=== PATIENT | female | born 1960 | race Caucasian/White ===

== ENCOUNTER → 2016-07-18 | Outpatient (CLI) | payer OTHER ==
--- NOTE | 2016-07-21 07:08 | MM ---
Reason for exam: screening (asymptomatic). Last mammogram was performed 1 year and 1 month ago. History: Patient is postmenopausal, has history of colon cancer at age 49, and history of other cancer. Took estrogen for 16 years beginning at age 32. Physical Findings: A clinical breast exam by your physician is recommended on an annual basis and results should be correlated with mammographic findings. MG Screening Mammo w CAD Bilateral CC and MLO view(s) were taken. Prior study comparison: June 26, 2015, bilateral MG screening mammo w CAD. May 31, 2014, bilateral MG screening mammo w CAD. There are scattered fibroglandular densities. There is no discrete abnormality. No significant changes when compared with prior studies. ASSESSMENT: Negative, BI-RAD 1 RECOMMENDATION: Routine screening mammogram of both breasts in 1 year.
== END | disposition home or self-care (01) ==
LOC: RADMAMWWP 09:45
PROVIDERS: ATTEND Family Medicine
DX: Z12.31 Encounter for screening mammogram for malignant neoplasm of breast (principal)

== ENCOUNTER → 2016-08-07 | Outpatient (CLI) | payer OTHER ==
--- NOTE | 2016-08-08 08:46 | XR ---
EXAMINATION TYPE: XR cervical spine comp DATE OF EXAM: 08/07/2016 2:36 PM COMPARISON: NONE HISTORY: Bilateral carpal pain, cervical pain TECHNIQUE: 5 view cervical spine FINDINGS: There is left foraminal stenosis C3-4. Foraminal stenosis is also present on left at C6-7. Some foraminal stenosis present on the right at C6-7. Prevertebral space is normal. There is disc space narrowing throughout the cervical spine greatest at C6-7. Anterior vertebral body spurring is present. Facet degenerative changes are present. Odontoid is limited due to overlying occiput. Transthoracic swimmer's view supplemental CT exam. IMPRESSION: 1. Foraminal stenosis discussed above. 2. Degenerative disc changes.
== END | disposition home or self-care (01) ==
LOC: RADXRYALE 14:11
PROVIDERS: ATTEND Physician Assistant Medical
DX: M48.02 Spinal stenosis, cervical region (principal); M50.323 Other cervical disc degeneration at C6-C7 level
CPT/HCPCS: 72050

== ENCOUNTER → 2017-02-26 | Outpatient (CLI) | payer OTHER ==
--- NOTE | 2017-02-27 10:58 | XR ---
EXAMINATION TYPE: XR lumbosacral spine min 4V DATE OF EXAM: 02/26/2017 COMPARISON: NONE HISTORY: Degenerative disc change, chronic TECHNIQUE: Lumbar spine is examined in 5 views. FINDINGS: There 5 lumbar-type vertebral bodies. The pedicles are intact. Facet degenerative changes a re present L5-S1. Milder facet degenerative changes are within the remaining lumbar spine Disc height s appear preserved. Mild spondylosis is present. No spondylolysis is evident. IMPRESSION: 1. Facet degenerative change and spondylosis lumbar spine
== END ==
LOC: RADXRYALE 16:17
PROVIDERS: ATTEND Physician Assistant Medical
DX: M47.816 Spondylosis without myelopathy or radiculopathy, lumbar region (principal); M46.86 Other specified inflammatory spondylopathies, lumbar region
CPT/HCPCS: 72110

== ENCOUNTER → 2017-07-31 | Outpatient (CLI) | payer OTHER ==
--- NOTE | 2017-08-03 10:03 | MM ---
Reason for exam: screening (asymptomatic). Last mammogram was performed 1 year ago. History: Patient is postmenopausal, has history of colon cancer at age 49, and history of other cancer. Took estrogen for 16 years beginning at age 32. Physical Findings: A clinical breast exam by your physician is recommended on an annual basis and results should be correlated with mammographic findings. MG Screening Mammo w CAD Bilateral CC and MLO view(s) were taken. Prior study comparison: July 18, 2016, bilateral MG screening mammo w CAD. June 26, 2015, bilateral MG screening mammo w CAD. The breast tissue is heterogeneously dense. This may lower the sensitivity of mammography. There is no discrete abnormality. ASSESSMENT: Negative, BI-RAD 1 RECOMMENDATION: Routine screening mammogram of both breasts in 1 year.
== END | disposition home or self-care (01) ==
LOC: RADMAMWWP 14:31
PROVIDERS: ATTEND Family Medicine
DX: Z12.31 Encounter for screening mammogram for malignant neoplasm of breast (principal)
CPT/HCPCS: 77067

== ENCOUNTER → 2018-08-10 | Outpatient (CLI) | payer OTHER ==
--- NOTE | 2018-08-11 10:05 | MM ---
Reason for exam: screening (asymptomatic). Last mammogram was performed 1 year ago. History: Patient is postmenopausal, has history of colon cancer at age 49, and history of other cancer. Took estrogen for 16 years beginning at age 32. Physical Findings: A clinical breast exam by your physician is recommended on an annual basis and results should be correlated with mammographic findings. MG Screening Mammo w CAD Bilateral CC and MLO view(s) were taken. Prior study comparison: July 31, 2017, bilateral MG screening mammo w CAD. July 18, 2016, bilateral MG screening mammo w CAD. The breast tissue is heterogeneously dense. This may lower the sensitivity of mammography. There is no discrete abnormality. No significant changes when compared with prior studies. ASSESSMENT: Negative, BI-RAD 1 RECOMMENDATION: Routine screening mammogram of both breasts in 1 year.
== END | disposition home or self-care (01) ==
LOC: RADMAMWWP 14:47
PROVIDERS: ATTEND Family Medicine
DX: Z12.31 Encounter for screening mammogram for malignant neoplasm of breast (principal)
CPT/HCPCS: 77067

== ENCOUNTER → 2018-12-23 | Outpatient (CLI) | payer OTHER ==
--- NOTE | 2018-12-23 16:23 | XR ---
EXAMINATION TYPE: XR shoulder complete RT DATE OF EXAM: 12/23/2018 COMPARISON: 10/16/1714 HISTORY: Persistent right shoulder pain after injury 7 months ago TECHNIQUE: 3 views of the right shoulder were obtained FINDINGS: There is very minimal joint space narrowing of the acromioclavicular joint and glenohumeral joint without acute fracture or dislocation of the right shoulder. Visualized right ribs appear inta ct and unremarkable. IMPRESSION: Very minimal glenohumeral and acromio clavicular arthropathy without acute fracture or di slocation of the right shoulder.
--- NOTE | 2018-12-23 23:55 | XR ---
EXAMINATION TYPE: XR clavicle RT DATE OF EXAM: 12/23/2018 COMPARISON: NONE HISTORY: 58-year-old female right shoulder injury, persistent pain TECHNIQUE: 2 views FINDINGS: Mild degenerative joint space narrowing at the acromioclavicular joint. The joint appears c ongruent. Subacromial space is preserved. No clavicular fracture. The positioning of the clavicles ap pears relatively symmetric. IMPRESSION: No acute osseous abnormality seen.
== END | disposition home or self-care (01) ==
LOC: RADXRYALE 15:41
PROVIDERS: ATTEND Family Medicine
DX: S49.91XD Unspecified injury of right shoulder and upper arm, subsequent encounter (principal); M19.011 Primary osteoarthritis, right shoulder

== ENCOUNTER → 2019-08-12 | Outpatient (CLI) | payer OTHER ==
--- NOTE | 2019-08-16 09:06 | MM ---
Reason for exam: screening (asymptomatic). Last mammogram was performed 1 year ago. History: Patient is postmenopausal, has history of colon cancer at age 49, and history of other cancer. Took estrogen for 16 years beginning at age 32. Physical Findings: A clinical breast exam by your physician is recommended on an annual basis and results should be correlated with mammographic findings. MG Screening Mammo w CAD Bilateral CC and MLO view(s) were taken. Prior study comparison: August 10, 2018, bilateral MG screening mammo w CAD. July 31, 2017, bilateral MG screening mammo w CAD. The breast tissue is heterogeneously dense. This may lower the sensitivity of mammography. No significant changes when compared with prior studies. ASSESSMENT: Negative, BI-RAD 1 RECOMMENDATION: Routine screening mammogram of both breasts in 1 year.
== END | disposition home or self-care (01) ==
LOC: RADMAMWWP 15:23
PROVIDERS: ATTEND Family Medicine
DX: Z12.31 Encounter for screening mammogram for malignant neoplasm of breast (principal)
CPT/HCPCS: 77067

== ENCOUNTER → 2019-11-02 | Outpatient (CLI) | payer OTHER ==
--- NOTE | 2019-11-02 18:27 | XR ---
Right foot HISTORY: Right foot pain 3 views of the right foot There is a hallux valgus deformity with degenerative change. Bone mineralization is maintained. No fr acture or dislocation. IMPRESSION: Hallux valgus deformity
== END | disposition home or self-care (01) ==
LOC: RADXRYALE 14:57
PROVIDERS: ATTEND Physician Assistant
DX: M20.11 Hallux valgus (acquired), right foot (principal)

== ENCOUNTER → 2020-08-30 | Outpatient (CLI) | payer OTHER ==
--- NOTE | 2020-08-30 15:44 | XR ---
EXAMINATION TYPE: XR ankle complete LT DATE OF EXAM: 08/30/2020 CLINICAL HISTORY: Pain after fall injury one week ago. TECHNIQUE: Frontal, lateral and oblique images of the left ankle are obtained. COMPARISON: None. FINDINGS: There is no acute fracture/dislocation evident in the left ankle. The ankle mortise appea rs within normal limits. Surgical change in region of first metatarsal head is partially imaged. The overlying soft tissue appears unremarkable. IMPRESSION: There is no acute fracture or dislocation in the left ankle.
== END | disposition home or self-care (01) ==
LOC: RADXRYALE 15:12
PROVIDERS: ATTEND Physician Assistant
DX: M25.572 Pain in left ankle and joints of left foot (principal)

== ENCOUNTER → 2020-11-09 | Outpatient (CLI) | payer OTHER ==
--- NOTE | 2020-11-10 01:47 | MR ---
EXAMINATION TYPE: MR ankle LT wo con DATE OF EXAM: 11/09/2020 COMPARISON: None HISTORY: Left ankle pain since 2020 from slipping on ice. Multiplanar multiecho imaging of the right ankle was performed without contrast. The Achilles tendon is intact. Plantar fascia appears normal. The medial and lateral flexor tendons o f the ankle appear intact. There is mild ankle joint effusion. There is small area of slight increase d signal in the posterior malleolus on the T2 images. This is consistent with minimal edema and bone bruise. I see no fracture line. The collateral ligaments appear intact. The distal fibula is intact. Bones of the hindfoot appear intact. The joint spaces overall are fairly well-maintained. IMPRESSION: There is small ankle joint effusion consistent with some nonspecific synovitis. No fracture line seen . Normal bone bruise involving the posterior malleolus.
== END | disposition home or self-care (01) ==
LOC: RADMRIMAIN 19:33
PROVIDERS: ATTEND Emergency Medicine
DX: M25.472 Effusion, left ankle (principal)

== ENCOUNTER → 2021-02-21 | Outpatient (CLI) | payer OTHER ==
--- NOTE | 2021-02-25 12:28 | MM ---
Reason for exam: screening (asymptomatic). Last mammogram was performed 1 year and 6 months ago. History: Patient is postmenopausal, has history of colon cancer at age 49, and history of other cancer. Took hormonal contraceptives for 2 years. Took estrogen for 16 years beginning at age 32. Physical Findings: A clinical breast exam by your physician is recommended on an annual basis and results should be correlated with mammographic findings. MG Screening Mammo w CAD Bilateral CC and MLO view(s) were taken. Prior study comparison: August 12, 2019, bilateral MG screening mammo w CAD. August 10, 2018, bilateral MG screening mammo w CAD. July 31, 2017, bilateral MG screening mammo w CAD. No significant changes when compared with prior studies. ASSESSMENT: Benign, BI-RAD 2 RECOMMENDATION: Routine screening mammogram of both breasts in 1 year.
== END | disposition home or self-care (01) ==
LOC: RADMAMWWP 14:58
PROVIDERS: ATTEND Family Medicine
DX: Z12.31 Encounter for screening mammogram for malignant neoplasm of breast (principal)
CPT/HCPCS: 77067

== ENCOUNTER → 2021-10-09 | Outpatient (CLI) | payer OTHER ==
--- NOTE | 2021-10-09 16:04 | XR ---
EXAMINATION TYPE: XR lumbar spine 2 or 3V DATE OF EXAM: 10/09/2021 COMPARISON: 02/26/2017 HISTORY: Low back pain TECHNIQUE: 3 view lumbar spine FINDINGS: Posterior disc space narrowing is present L4-5. Diffuse disc space narrowing with vacuum di sc phenomenon is present L3-4. Severe disc space narrowing is present at L2-3. Spondylosis is present . There is a scoliosis with convexity to left centered at L3 in the frontal projection. Lateral view appears normal in alignment. Vertebral body heights are preserved. There are 5 lumbar-type vertebral bodies. Pedicles are intact. IMPRESSION: 1. Degenerative disc changes greatest L3-4.
== END | disposition home or self-care (01) ==
LOC: RADXRYALE 15:08
PROVIDERS: ATTEND Physician Assistant
DX: M51.36 Other intervertebral disc degeneration, lumbar region (principal)
CPT/HCPCS: 72100

== ENCOUNTER → 2022-02-24 | Outpatient (CLI) | payer OTHER ==
--- NOTE | 2022-02-24 15:45 | MM ---
Reason for Exam: Screening (asymptomatic). Last screening mammogram was performed 12 month(s) ago. Patient History: Menarche at age 16. First Full-Term at age 24. Hysterectomy at age 30. Postmenopausal. Colorectal cancer, age 49. Previous chemotherapy at age 49. Estrogen for 16 years from age 32 until age 55. Patient used Hormonal Contraceptives for 2 years. Risk Values: Elizabeth 5 year model risk: 1.2%. NCI Lifetime model risk: 5.7%. Prior Study Comparison: 08/10/2018 Bilateral Screening Mammogram, [facility]. 08/12/2019 Bilateral Screening Mammogram, [facility]. 02/21/2021 Bilateral Screening Mammogram, [facility]. Tissue Density: There are scattered fibroglandular densities. Findings: Analyzed By CAD. There is no suspicious group of microcalcifications or new suspicious mass in either breast. Overall Assessment: Negative, BI-RAD 1 Management: Screening Mammogram of both breasts in 1 year. A clinical breast exam by your physician is recommended on an annual basis and results should be correlated with mammographic findings. Electronically signed and approved by: John Dejesus DO
== END | disposition home or self-care (01) ==
LOC: RADMAMWWP 14:34
PROVIDERS: ATTEND Family Medicine
DX: Z12.31 Encounter for screening mammogram for malignant neoplasm of breast (principal); Z78.0 Asymptomatic menopausal state; Z85.038 Personal history of other malignant neoplasm of large intestine
CPT/HCPCS: 77067

== ENCOUNTER 2022-06-05 10:02 | Emergency (ER) | payer OTHER ==
[2022-06-05 10:16] VITALS: RESP 18
--- NOTE | 2022-06-05 11:03 | XR ---
EXAMINATION TYPE: XR chest 2V DATE OF EXAM: 06/05/2022 COMPARISON: 03/19/2011 TECHNIQUE: PA and lateral views submitted. HISTORY: Dysrhythmia FINDINGS: The lungs are clear and there is no pneumothorax, pleural effusion, or focal pneumonia. Heart size normal. No overt failure. Linear changes left lung base. IMPRESSION: 1. No acute process. Left basilar atelectasis or scar.
[2022-06-05 11:04] LABS: Basophils # (A) 0.1 k/uL (0-0.2); Basophils % (A) 1 %; Eosinophils # (A) 0.2 k/uL (0-0.7); Eosinophils % (A) 3 %; HCT 40.3 % (34.0-46.0); HGB 13.7 gm/dL (11.4-16.0); Lymphocytes # (A) 1.6 k/uL (1.0-4.8); Lymphocytes % (A) 33 %; MCH 28.8 pg (25.0-35.0); MCHC 33.9 g/dL (31.0-37.0); MCV 84.9 fL (80.0-100.0); Mean Platelet Volume 8.6; Monocytes # (A) 0.3 k/uL (0-1.0); Monocytes % (A) 6 %; Neutrophils # (A) 2.5 k/uL (1.3-7.7); Neutrophils % (A) 53 %; Platelet Count 232 k/uL (150-450); RBC 4.75 m/uL (3.80-5.40); RDW 13.5 % (11.5-15.5); WBC 4.8 k/uL (3.8-10.6)
[2022-06-05 11:21] LABS: ALT 75 U/L (4-34); AST 52 U/L (14-36); African American GFR (CKD) >90 (>60 ml/min/1.73 sqM); Albumin 4.6 g/dL (3.5-5.0); Alkaline Phosphatase 93 U/L (38-126); Anion Gap 12 mmol/L; Blood Urea Nitrogen 10 mg/dL (7-17); Calcium 9.5 mg/dL (8.4-10.2); Carbon Dioxide 23 mmol/L (22-30); Chloride 107 mmol/L (98-107); Glucose 132 mg/dL (74-99); Magnesium 1.9 mg/dL (1.6-2.3); Non-African American GFR(CKD) >90 (>60 ml/min/1.73 sqM); Potassium 4.5 mmol/L (3.5-5.1); Sodium 142 mmol/L (137-145); Total Bilirubin 0.7 mg/dL (0.2-1.3); Total Protein 7.3 g/dL (6.3-8.2)
[2022-06-05 11:24] LABS: INR 0.9 (<1.2); Partial Thromboplastin Time 24.4 sec (22.0-30.0); Prothrombin Time 9.8 sec (9.0-12.0)
[2022-06-05] MEDS ORDERED: MECLIZINE 25 MG TAB PO STA (13:16)
--- NOTE | 2022-06-05 13:37 | ED ---
General Adult HPI - General Chief complaint: Arrhythmia/Palpitations Stated complaint: abnormal EKG - sent by pcp Time Seen by Provider: 06/05/22 12:54 Source: patient, RN notes reviewed, old records reviewed Mode of arrival: ambulatory Limitations: no limitations - History of Present Illness Initial comments: This is a 62-year-old female presents emergency Department stating that for about 9 months no she has had dizziness and feels like the room was spinning and then she becomes very diaphoretic and nauseated. Patient states that usually lasts about 10-15 minutes and then it subsides and goes away. Patient states she does not have any palpitations she does not have any chest pain or difficulty breathing or shortness of breath. Patient states she went to her doctor's office today and they recommended she come the emergency department. Patient is not 100% sure why. Patient states she has told her doctor about this but no was worked up. Patient currently denies any dizziness at this time patient denies any chest pain difficulty breathing or shortness of breath. Patient states she does have a mild frontal headache but she thinks it's just her sinuses. Patient denies any recent fever chills or cough. Patient denies any injury or trauma. - Related Data Home Medications Medication Instructions Recorded Confirmed Omeprazole [PriLOSEC] 20 mg PO DAILY 03/29/14 08/19/19 Cholecalciferol (Vitamin D3) 125 mcg PO DAILY 08/17/19 08/19/19 [Vitamin D3] Escitalopram [Lexapro] 5 mg PO HS 08/17/19 08/19/19 [employer] 1 tab PO DAILY 08/17/19 08/19/19 Pravastatin Sodium [Pravachol] 20 mg PO HS 08/17/19 08/19/19 Hemp Oil 1 drop PO DAILY PRN 08/19/19 08/19/19 busPIRone HCl [Buspar] 1 tab PO DAILY 08/19/19 08/19/19 Previous Rx's Medication Instructions Recorded Meclizine [Antivert] 25 mg PO TID #20 tab 06/05/22 Allergies Allergy/AdvReac Type Severity Reaction Status Date / Time trimethoprim [From Bactrim] Allergy yeast Verified 06/05/22 10:15 infection sulfamethoxazole AdvReac yeast Verified 06/05/22 10:15 [From Bactrim] infection Review of Systems ROS Statement: Those systems with pertinent positive or pertinent negative responses have been documented in the HPI. ROS Other: All systems not noted in ROS Statement are negative. Past Medical History Past Medical History: Cancer, GERD/Reflux Additional Past Medical History / Comment(s): HX STAGE III COLON CANCER History of Any Multi-Drug Resistant Organisms: None Reported Past Surgical History: Bowel Resection, Section, Hernia Repair, Hysterectomy, Orthopedic Surgery Additional Past Surgical History / Comment(s): colonoscopy. LT FOOT BUNIONECTOMY Past Anesthesia/Blood Transfusion Reactions: Motion Sickness Additional Past Anesthesia/Blood Transfusion Reaction / Comment(s): SENSITIVE TO ANESTHESIA Past Psychological History: No Psychological Hx Reported Smoking Status: Never smoker Past Alcohol Use History: None Reported Past Drug Use History: None Reported - Past Family History Mother Family Medical History: No Reported History General Exam - General Exam Comments Initial Comments: GENERAL: Patient is well-developed and well-nourished. Patient is nontoxic and well- hydrated and is in mild distress. ENT: Neck is soft and supple. No significant lymphadenopathy is noted. Oropharynx is clear. Moist mucous membranes. Neck has full range of motion without eliciting any pain. EYES: The sclera were anicteric and conjunctiva were pink and moist. Extraocular movements were intact and pupils were equal round and reactive to light. Eyelids were unremarkable. PULMONARY: Unlabored respirations. Good breath sounds bilaterally. No audible rales rhonchi or wheezing was noted. CARDIOVASCULAR: There is a regular rate and rhythm without any murmurs gallops or rubs. ABDOMEN: Soft and nontender with normal bowel sounds. SKIN: Skin is clear with no lesions or rashes and otherwise unremarkable. NEUROLOGIC: Patient's finger to nose testing is normal bilaterally. Patient is alert and oriented x3. Cranial nerves II through XII are grossly intact. Motor and sensory are also intact. Normal speech, volume and content. Symmetrical smile. MUSCULOSKELETAL: Normal extremities with adequate strength and full range of motion. No lower extremity swelling or edema. No calf tenderness. LYMPHATICS: No significant lymphadenopathy is noted PSYCHIATRIC: Normal psychiatric evaluation. Limitations: no limitations Course Vital Signs 06/05/22 10:12 Temperature 98 F Pulse Rate 77 Respiratory 18 Rate Blood Pressure 166/86 O2 Sat by Pulse 98 Oximetry Medical Decision Making - Medical Decision Making EKG was interpreted me. EKG shows sinus rhythm at 74 bpm DE interval 246 d resses 84 QT interval 390 QTC is 386. Patient's EKG shows no ST segment elevation or depression. CT of the brain was told by me. CT of brain showed no intracranial hemorrhage. Chest x-ray is interpreted by me. Chest x-ray showed no acute abnormality no infiltrate no pleural effusions. I gave the patient Antivert in the emergency department. Patient was feeling back to her baseline without any dizziness throughout her ED stay. - Lab Data Result diagrams: 06/05/22 10:39 06/05/22 10:39 Lab Results 06/05/22 06/05/22 06/05/22 Range/Units 10:39 10:39 10:39 WBC 4.8 (3.8-10.6) k/uL RBC 4.75 (3.80-5.40) m/uL Hgb 13.7 (11.4-16.0) gm/dL Hct 40.3 (34.0-46.0) % MCV 84.9 (80.0-100.0) fL MCH 28.8 (25.0-35.0) pg MCHC 33.9 (31.0-37.0) g/dL RDW 13.5 (11.5-15.5) % Plt Count 232 (150-450) k/uL MPV 8.6 Neutrophils % 53 % Lymphocytes % 33 % Monocytes % 6 % Eosinophils % 3 % Basophils % 1 % Neutrophils # 2.5 (1.3-7.7) k/uL Lymphocytes # 1.6 (1.0-4.8) k/uL Monocytes # 0.3 (0-1.0) k/uL Eosinophils # 0.2 (0-0.7) k/uL Basophils # 0.1 (0-0.2) k/uL PT 9.8 (9.0-12.0) sec INR 0.9 (<1.2) APTT 24.4 (22.0-30.0) sec Sodium 142 (137-145) mmol/L Potassium 4.5 (3.5-5.1) mmol/L Chloride 107 (98-107) mmol/L Carbon Dioxide 23 (22-30) mmol/L Anion Gap 12 mmol/L BUN 10 (7-17) mg/dL Creatinine 0.58 (0.52-1.04) mg/dL Est GFR (CKD-EPI)AfAm >90 (>60 ml/min/1.73 sqM) Est GFR (CKD-EPI)NonAf >90 (>60 ml/min/1.73 sqM) Glucose 132 H (74-99) mg/dL Calcium 9.5 (8.4-10.2) mg/dL Magnesium 1.9 (1.6-2.3) mg/dL Total Bilirubin 0.7 (0.2-1.3) mg/dL AST 52 H (14-36) U/L ALT 75 H (4-34) U/L Alkaline Phosphatase 93 (38-126) U/L Troponin I (0.000-0.034) ng/mL Total Protein 7.3 (6.3-8.2) g/dL Albumin 4.6 (3.5-5.0) g/dL 06/05/22 Range/Units 10:39 WBC (3.8-10.6) k/uL RBC (3.80-5.40) m/uL Hgb (11.4-16.0) gm/dL Hct (34.0-46.0) % MCV (80.0-100.0) fL MCH (25.0-35.0) pg MCHC (31.0-37.0) g/dL RDW (11.5-15.5) % Plt Count (150-450) k/uL MPV Neutrophils % % Lymphocytes % % Monocytes % % Eosinophils % % Basophils % % Neutrophils # (1.3-7.7) k/uL Lymphocytes # (1.0-4.8) k/uL Monocytes # (0-1.0) k/uL Eosinophils # (0-0.7) k/uL Basophils # (0-0.2) k/uL PT (9.0-12.0) sec INR (<1.2) APTT (22.0-30.0) sec Sodium (137-145) mmol/L Potassium (3.5-5.1) mmol/L Chloride (98-107) mmol/L Carbon Dioxide (22-30) mmol/L Anion Gap mmol/L BUN (7-17) mg/dL Creatinine (0.52-1.04) mg/dL Est GFR (CKD-EPI)AfAm (>60 ml/min/1.73 sqM) Est GFR (CKD-EPI)NonAf (>60 ml/min/1.73 sqM) Glucose (74-99) mg/dL Calcium (8.4-10.2) mg/dL Magnesium (1.6-2.3) mg/dL Total Bilirubin (0.2-1.3) mg/dL AST (14-36) U/L ALT (4-34) U/L Alkaline Phosphatase (38-126) U/L Troponin I <0.012 (0.000-0.034) ng/mL Total Protein (6.3-8.2) g/dL Albumin (3.5-5.0) g/dL Disposition Clinical Impression: Vertigo Disposition: HOME SELF-CARE Condition: Good Instructions (If sedation given, give patient instructions): Vertigo (ED) Prescriptions: Meclizine [Antivert] 25 mg PO TID #20 tab Is patient prescribed a controlled substance at d/c from ED?: No Referrals: Lenin Fan DO [Primary Care Provider] - 1-2 days Time of Disposition: 14:27
--- NOTE | 2022-06-05 13:45 | CT ---
EXAMINATION TYPE: CT brain wo con DATE OF EXAM: 06/05/2022 COMPARISON: None HISTORY: Dizziness and headache. CT DLP: 1153.[address] of the brain was performed. The ventricles, basal cisterns and sulci overlying the cerebral convexities demonstrate mild enlargem ent. There is no evidence for intracranial hemorrhage or sulcal effacement. There is decreased attenuation about the periventricular white matter and deep white matter of both c erebral hemispheres, compatible with chronic small vessel ischemia. Differential diagnosis does inclu de demyelination. No mass effects are seen.No midline shift. Osseous calvarium is intact. If symptoms persist consider MRI. IMPRESSION: 1. Age related atrophic and chronic small vessel ischemic change without acute intracranial process s een at this time.
[2022-06-05 15:14] VITALS: BP 107/80; PULSE 85; TEMP 97.8
== END 2022-06-05 15:13 | disposition home or self-care (01) ==
LOC: EC 10:02
DX: R42 Dizziness and giddiness (principal); K21.9 Gastro-esophageal reflux disease without esophagitis; Z79.899 Other long term (current) drug therapy; Z88.1 Allergy status to other antibiotic agents; Z88.2 Allergy status to sulfonamides
CPT/HCPCS: 36415; 70450; 71046; 80053; 83735; 84484; 85025; 85610; 85730; 93005; 99285

== ENCOUNTER 2022-07-04 06:39 | Day surgery (SDC) | payer OTHER ==
[~2022-07-04 06:39] MED LIST: LACTATED RINGERS 1,000 ML IV SCH; LIDOCAINE 1% (10MG/ML) FOR IV START INTRADERMA PRN
[2022-07-04 07:13] VITALS: RESP 16; TEMP 96.8
[2022-07-04] MEDS ORDERED: LIDOCAINE 2% INJ 20 MG/ML (2 ML VIAL) ONE (08:11)
[2022-07-04] MEDS ORDERED: PROPOFOL 10 MG/ML 20 ML VIAL IV ONE (08:11)
--- NOTE | 2022-07-04 08:32 | P.PCN ---
Date of Procedure: 07/04/22 Procedure(s) Performed: Brief history: Patient is a pleasant 62-year-old white female scheduled for an elective upper endoscopy as well as colonoscopy as a part of evaluation of a history of GERD and surveillance of prior history of colon cancer diagnosed in 2010 status post right hemicolectomy. Last colonoscopy was 3 years ago. Procedure performed: Esophagogastroduodenoscopy Colonoscopy with snare polypectomy Preoperative diagnosis: Anesthesia: [facility] Procedure: After informed consent was obtained from the patient was brought into the endoscopy unit and IV sedation was administered by anesthesia under continuous monitoring. Initially upper endoscopy was done. The Olympus GF 160 video endoscope was inserted inserted into the mouth and esophagus intubated without any difficulty and was gradually advanced into the stomach and duodenum and carefully examined. The bulb and second part of the duodenum appeared normal. The scope was then withdrawn into the stomach adequately insufflated with air and upon careful examination the antrum and body, cardia and fundus appeared normal. The scope was then withdrawn into the esophagus. The GE junction was located at 40 cm to the incisors. It appeared regular with no erythema erosions or ulcerations. Rest of the esophagus appeared normal. Patient tolerated the procedure well. At this time the patient continued to remain sedation. Initial digital rectal examination was normal. Olympus CF 160 video colonoscope was then inserted into the rectum and gradually advanced to the right colon with anastomosis was visualized and appeared normal. Prep was excellent. Mucosa of the transverse colon, descending colon, appeared normal. In the sigmoid: There was a 5 mm polyp that was removed by snare polypectomy. Rest of the sigmoid colon and rectum appeared normal. Retroflexion was performed in the rectum and no lesions were noted. Patient tolerated the procedure well. Impression: 1. Upper endoscopy revealed normal-appearing esophagus with no evidence of esophagitis or esophageal stricture or Fisher's esophagus 2. Colonoscopy revealed a 5 mm sigmoid: polyp status post polypectomy and normal right ileocolonic anastomosis. Recommendations: Findings of this examination were discussed with the patient as well as a family. She was advised to have a repeat colonoscopy in 3 years from now. She will continue with omeprazole daily and follow antireflux measures.
[2022-07-04 08:59] VITALS: BP 156/79; PULSE 64
== END 2022-07-04 09:05 | disposition home or self-care (01) ==
LOC: ORWHC2ENDO 06:39
PROVIDERS: ATTEND Internal Medicine Gastroenterology
DX: Z12.11 Encounter for screening for malignant neoplasm of colon (principal); K63.5 Polyp of colon; K21.9 Gastro-esophageal reflux disease without esophagitis; I10 Essential (primary) hypertension; G47.33 Obstructive sleep apnea (adult) (pediatric); K76.0 Fatty (change of) liver, not elsewhere classified; Z86.010 Personal history of colon polyps; Z88.2 Allergy status to sulfonamides; Z79.01 Long term (current) use of anticoagulants; Z79.810 Long term (current) use of selective estrogen receptor modulators (SERMs); Z79.899 Other long term (current) drug therapy
CPT/HCPCS: 88305; 45385; 43235; J2704; J2001

== ENCOUNTER → 2023-03-03 | Outpatient (CLI) | payer OTHER ==
--- NOTE | 2023-03-04 08:30 | MM ---
Reason for Exam: Screening (asymptomatic). Last mammogram was performed 1 year(s) and 1 month(s) ago. Patient History: Menarche at age 16. First Full-Term at age 24. Hysterectomy at age 30. Postmenopausal. Colorectal cancer, age 49. Previous chemotherapy at age 49. Estrogen for 16 years from age 32 until age 55. Patient used Hormonal Contraceptives for 2 years. Risk Values: Elizabeth 5 year model risk: 1.3%. NCI Lifetime model risk: 5.5%. Prior Study Comparison: 08/12/2019 Bilateral Screening Mammogram, [facility]. 02/21/2021 Bilateral Screening Mammogram, [facility]. 02/24/2022 Bilateral MG screening mammo w CAD, [facility]. Tissue Density: The breast tissue is heterogeneously dense. This may lower the sensitivity of mammography. Findings: Analyzed By CAD. There is no suspicious group of microcalcifications or new suspicious mass in either breast. Overall Assessment: Negative, BI-RAD 1 Management: Screening Mammogram of both breasts in 1 year. A clinical breast exam by your physician is recommended on an annual basis and results should be correlated with mammographic findings. Note on Elizabeth scores and lifetime risk: 1. A Elizabeth score greater than 3% is considered moderate risk. If this is the case, consider specialist referral to assess eligibility for a risk reducing agent. If overall lifetime risk for the development of breast cancer is 20% or higher, the patient may qualify for future screening with alternating mammogram and breast MRI. Electronically signed and approved by: Chuck Aparicio D.O.
== END | disposition home or self-care (01) ==
LOC: RADMAMWWP 09:21
PROVIDERS: ATTEND Family Medicine
DX: Z12.31 Encounter for screening mammogram for malignant neoplasm of breast (principal); Z78.0 Asymptomatic menopausal state; Z85.3 Personal history of malignant neoplasm of breast
CPT/HCPCS: 77067

== ENCOUNTER → 2024-04-27 | Outpatient (CLI) | payer OTHER ==
--- NOTE | 2024-04-28 12:25 | MM ---
Reason for Exam: Screening (asymptomatic). Last mammogram was performed 1 year(s) and 1 month(s) ago. Patient History: Menarche at age 16. First Full-Term at age 24. Hysterectomy at age 30. Postmenopausal. Colorectal cancer, age 49. Previous chemotherapy at age 49. Estrogen for 16 years from age 32 until age 55. Patient used Hormonal Contraceptives for 2 years. Risk Values: Elizabeth 5 year model risk: 1.3%. NCI Lifetime model risk: 5.3%. Prior Study Comparison: 02/21/2021 Bilateral Screening Mammogram, [facility]. 02/24/2022 Bilateral MG screening mammo w CAD, [facility]. 03/03/2023 Bilateral MG screening mammo w CAD, [facility]. Tissue Density: The breasts are heterogeneously dense, which may obscure small masses. Findings: Analyzed By CAD. There is no suspicious group of microcalcifications or new suspicious mass in either breast. Overall Assessment: Negative, BI-RAD 1 Management: Screening Mammogram of both breasts in 1 year. . Patient should continue monthly self-breast exams. A clinical breast exam by your physician is recommended on an annual basis. This exam should not preclude additional follow-up of suspicious palpable abnormalities. Note on Elizabeth scores and lifetime risk: 1. A Elizabeth score greater than 3% is considered moderate risk. If this is the case, consider specialist referral to assess eligibility for a risk reducing agent. 2. If overall lifetime risk for the development of breast cancer is 20% or higher, the patient may qualify for future screening with alternating mammogram and breast MRI. [facility], , 04/28/2024 12:22 PM. Electronically signed and approved by: Carlton Russell M.D. Radiologist
== END | disposition home or self-care (01) ==
LOC: RADMAMWWP 08:10
PROVIDERS: ATTEND Student in an Organized Health Care Education/Training Program
CPT/HCPCS: 77067